=== PATIENT | female | born 1955 | race African-American/Black ===

== ENCOUNTER 2022-06-08 08:02 | Day surgery (SDC) | payer OTHER, BC ==
[2022-06-06 14:29] VITALS: BMI 28.1
[2022-06-08] MEDS ORDERED: PROPOFOL 20 ML ONE (09:20)
[2022-06-08 09:39] VITALS: RESP 18; TEMP 98
[2022-06-08 10:00] VITALS: BP 150/68; PULSE 60
== END 2022-06-08 10:46 | disposition home or self-care (01) ==
LOC: FASU-ENDO 08:02
PROVIDERS: ATTEND Internal Medicine Gastroenterology
PROC: 0DBH8ZX Excision of Cecum, Via Natural or Artificial Opening Endoscopic, Diagnostic (ICD-10-PCS; principal; 2022-06-08 09:06)
DX: Z12.11 Encounter for screening for malignant neoplasm of colon (principal); D12.0 Benign neoplasm of cecum; K63.89 Other specified diseases of intestine; Z80.0 Family history of malignant neoplasm of digestive organs; Z83.71 Family history of colonic polyps
CPT/HCPCS: 88305-TC